=== PATIENT | female | born 1990 | race American Indian/Alaskan Native ===

== ENCOUNTER 2019-01-29 21:47 | Emergency (ER) | payer SELFPAY ==
[2019-01-29 21:54] VITALS: BP 157/91
[2019-01-29] MEDS ORDERED: ALBUTEROL 2.5 MG/3 ML NEBU IH ONE (23:05)
[2019-01-29] MEDS ORDERED: methylPREDNISolone Sod Succinate 125 MG/2 ML INJ IV ONE (23:05)
[2019-01-29] MEDS ORDERED: IPRATROPIUM 0.02% NEBU 2.5 ML IH ONE (23:05)
[2019-01-29 23:46] LABS: Hematocrit 43.1 % (30.3-42.9); Hemoglobin 14.5 gm/dl (10.1-14.3); Mean Corpuscular HGB Conc 34 % (30-34); Mean Corpuscular Volume 96 fl (79-97); Platelet Count 278 K/mm3 (140-440); Red Blood Count 4.49 M/mm3 (3.65-5.03); Red Cell Distribution Width 12.7 % (13.2-15.2)
--- NOTE | 2019-01-29 23:51 | Emergency Department Report ---
ED General Adult HPI - General Chief complaint: Dyspnea/Respdistress Stated complaint: COUGH/FLANK PAIN/SOB Time Seen by Provider: 01/29/19 23:06 Source: patient Mode of arrival: Ambulatory Limitations: No Limitations - History of Present Illness Initial comments: 28-year-old -[place] female patient with history of recurrent bronchitis presents with complaints of going cough for 4-5 weeks now worsening over the past few days and dysuria for the past 2 days. Patient states she is now getting intermittent headaches from coughing so much and having pain in her right lower rib area with coughing and deep inhalation. He denies any history of DVT/PE/MO/CVA, recent long travel via car ride or plane ride, leg pain or swelling, hormone therapy, recent surgeries. She states she is coughing up green mucus and states that she has had an intermittent tactile fever with chills and sweats. She denies any hemoptysis, dizziness, vision changes, or chest pain. She also denies his history of asthma as a child and states she has never been a smoker. She denies any vaginal discharge, dyspareunia, hematuria, or concern for STI's. -: Sudden, week(s) - Related Data Previous Rx's Medication Instructions Recorded Last Taken Type ALBUTEROL Inhaler (OR & NICU) 2 puff IH QID PRN #1 inhalation 08/26/17 Unknown Rx [ProAir HFA Inhaler] Dicyclomine [Bentyl] 20 mg PO QID #12 tablet 08/26/17 Unknown Rx Famotidine [Pepcid] 40 mg PO QHS #14 tablet 08/26/17 Unknown Rx Ibuprofen [Motrin] 600 mg PO Q8H PRN #20 tablet 08/26/17 Unknown Rx predniSONE [Deltasone] 10 mg PO QDAY #5 tab 08/26/17 Unknown Rx ALBUTEROL Inhaler (OR & NICU) 2 puff IH Q4H PRN #8.5 gram 01/30/19 Unknown Rx [ProAir HFA Inhaler] Benzonatate 200 mg PO TID 10 Days #30 capsule 01/30/19 Unknown Rx Doxycycline Monohydrate 100 mg PO BID 10 Days #20 capsule 01/30/19 Unknown Rx Prednisone [predniSONE 10 mg 10 mg PO .TAPER #1 tab.ds.pk 01/30/19 Unknown Rx (6-Day Pack, 21 Tabs)] Allergies Allergy/AdvReac Type Severity Reaction Status Date / Time coconut Allergy Itching Verified 08/26/17 12:17 ED Review of Systems ROS: Stated complaint: COUGH/FLANK PAIN/SOB Other details as noted in HPI Constitutional: chills, diaphoresis, fever Eyes: denies: eye pain, vision change ENT: denies: ear pain, throat pain Respiratory: cough, orthopnea, shortness of breath Cardiovascular: denies: chest pain, edema, syncope Gastrointestinal: denies: abdominal pain, nausea, vomiting Genitourinary: dysuria, frequency. denies: hematuria, discharge, abnormal menses, dyspareunia Musculoskeletal: denies: back pain Neurological: headache. denies: weakness, numbness, paresthesias, confusion, abnormal gait Psychiatric: denies: anxiety, depression Hematological/Lymphatic: denies: easy bleeding, easy bruising ED Past Medical Hx - Past Medical History Previous Medical History?: Yes Additional medical history: Bronchitis - Surgical History Past Surgical History?: No - Social History Smoking Status: Never Smoker Substance Use Type: None - Medications Home Medications: Home Medications Medication Instructions Recorded Confirmed Last Taken Type ALBUTEROL Inhaler (OR & NICU) 2 puff IH QID PRN #1 inhalation 08/26/17 Unknown Rx [ProAir HFA Inhaler] Dicyclomine [Bentyl] 20 mg PO QID #12 tablet 08/26/17 Unknown Rx Famotidine [Pepcid] 40 mg PO QHS #14 tablet 08/26/17 Unknown Rx Ibuprofen [Motrin] 600 mg PO Q8H PRN #20 tablet 08/26/17 Unknown Rx predniSONE [Deltasone] 10 mg PO QDAY #5 tab 08/26/17 Unknown Rx ALBUTEROL Inhaler (OR & NICU) 2 puff IH Q4H PRN #8.5 gram 01/30/19 Unknown Rx [ProAir HFA Inhaler] Benzonatate 200 mg PO TID 10 Days #30 capsule 01/30/19 Unknown Rx Doxycycline Monohydrate 100 mg PO BID 10 Days #20 capsule 01/30/19 Unknown Rx Prednisone [predniSONE 10 mg 10 mg PO .TAPER #1 tab.ds.pk 01/30/19 Unknown Rx (6-Day Pack, 21 Tabs)] ED Physical Exam - General Limitations: No Limitations General appearance: alert, in no apparent distress - Head Head exam: Present: atraumatic - Eye Eye exam: Present: normal appearance, PERRL. Absent: scleral icterus - ENT ENT exam: Present: mucous membranes moist - Neck Neck exam: Present: normal inspection. Absent: tenderness, full ROM, lymphaden opathy - Respiratory Respiratory exam: Present: wheezes, rales, rhonchi, chest wall tenderness. Absent: respiratory distress, accessory muscle use, decreased breath sounds - Cardiovascular Cardiovascular Exam: Present: regular rate, normal rhythm. Absent: systolic murmur, diastolic murmur, rubs, gallop - GI/Abdominal GI/Abdominal exam: Present: soft, normal bowel sounds - Extremities Exam Extremities exam: Absent: pedal edema, joint swelling, calf tenderness - Back Exam Back exam: Absent: CVA tenderness (R), CVA tenderness (L) - Neurological Exam Neurological exam: Present: alert, oriented X3 - Psychiatric Psychiatric exam: Present: normal affect, normal mood - Skin Skin exam: Present: warm, dry, intact, normal color. Absent: rash, cyanosis, diaphoretic ED Course Vital Signs 01/29/19 01/29/19 21:52 23:19 Temperature 99.4 F Pulse Rate 104 H Pulse Rate [ 112 H Bilateral Throughout] Respiratory 18 Rate Respiratory 20 Rate [Bilateral Throughout] Blood Pressure 157/91 O2 Sat by Pulse 95 Oximetry ED Medical Decision Making - Lab Data Result diagrams: 01/29/19 23:03 01/29/19 23:03 Lab Results 01/29/19 01/29/19 01/29/19 Range/Units 23:03 23:03 23:03 WBC 11.2 H (4.5-11.0) K/mm3 RBC 4.49 (3.65-5.03) M/mm3 Hgb 14.5 H (10.1-14.3) gm/dl Hct 43.1 H (30.3-42.9) % MCV 96 (79-97) fl MCH 32 (28-32) pg MCHC 34 (30-34) % RDW 12.7 L (13.2-15.2) % Plt Count 278 (140-440) K/mm3 Sodium 140 (137-145) mmol/L Potassium 4.1 (3.6-5.0) mmol/L Chloride 100.5 (98-107) mmol/L Carbon Dioxide 26 (22-30) mmol/L Anion Gap 18 mmol/L BUN 11 (7-17) mg/dL Creatinine 0.8 (0.7-1.2) mg/dL Estimated GFR > 60 ml/min BUN/Creatinine Ratio 14 % Glucose 96 (65-100) mg/dL Calcium 9.5 (8.4-10.2) mg/dL Total Bilirubin 0.30 (0.1-1.2) mg/dL AST 16 (5-40) units/L ALT 10 (7-56) units/L Alkaline Phosphatase 84 (35-129) units/L Total Protein 8.2 (6.3-8.2) g/dL Albumin 4.2 (3.9-5) g/dL Albumin/Globulin Ratio 1.1 % HCG, Qual Negative (Negative) Urine Color (Yellow) Urine Turbidity (Clear) Urine pH (5.0-7.0) Ur Specific [place] (1.003-1.030) Urine Protein (Negative) mg/dL Urine Glucose (UA) (Negative) mg/dL Urine Ketones (Negative) mg/dL Urine Blood (Negative) Urine Nitrite (Negative) Urine Bilirubin (Negative) Urine Urobilinogen (<2.0) mg/dL Ur Leukocyte Esterase (Negative) Urine WBC (Auto) (0.0-6.0) /HPF Urine RBC (Auto) (0.0-6.0) /HPF U Epithel Cells (Auto) (0-13.0) /HPF Calcium Oxalate Crystal Urine Mucus /HPF 01/29/19 Range/Units Unknown WBC (4.5-11.0) K/mm3 RBC (3.65-5.03) M/mm3 Hgb (10.1-14.3) gm/dl Hct (30.3-42.9) % MCV (79-97) fl MCH (28-32) pg MCHC (30-34) % RDW (13.2-15.2) % Plt Count (140-440) K/mm3 Sodium (137-145) mmol/L Potassium (3.6-5.0) mmol/L Chloride (98-107) mmol/L Carbon Dioxide (22-30) mmol/L Anion Gap mmol/L BUN (7-17) mg/dL Creatinine (0.7-1.2) mg/dL Estimated GFR ml/min BUN/Creatinine Ratio % Glucose (65-100) mg/dL Calcium (8.4-10.2) mg/dL Total Bilirubin (0.1-1.2) mg/dL AST (5-40) units/L ALT (7-56) units/L Alkaline Phosphatase (35-129) units/L Total Protein (6.3-8.2) g/dL Albumin (3.9-5) g/dL Albumin/Globulin Ratio % HCG, Qual (Negative) Urine Color Kelly (Yellow) Urine Turbidity Cloudy (Clear) Urine pH 5.0 (5.0-7.0) Ur Specific [place] 1.031 H (1.003-1.030) Urine Protein 30 mg/dl (Negative) mg/dL Urine Glucose (UA) Neg (Negative) mg/dL Urine Ketones 20 (Negative) mg/dL Urine Blood Sm (Negative) Urine Nitrite Neg (Negative) Urine Bilirubin Neg (Negative) Urine Urobilinogen 2.0 (<2.0) mg/dL Ur Leukocyte Esterase Mod (Negative) Urine WBC (Auto) 61.0 H (0.0-6.0) /HPF Urine RBC (Auto) 4.0 (0.0-6.0) /HPF U Epithel Cells (Auto) 23.0 H (0-13.0) /HPF Calcium Oxalate Crystal 1+ Urine Mucus 3+ /HPF - Radiology Data Radiology results: report reviewed CHEST 2 VIEWS, 01/30/2019 12:35 AM INDICATION: Cough COMPARISON: None FINDINGS: Support devices: None Heart: Heart size and pulmonary vascularity are within normal limits. Lungs/pleura: There is no focal airspace disease or significant pleural effusion. Additional findings: Bony structures appear grossly normal. IMPRESSION: 1. No evidence of acute cardiopulmonary process. - Medical Decision Making 28-year-old -[place] female here today with cough, shortness of breath and dysuria. She reports history of recurrent bronchitis. Patient is a nonsmoker without history of asthma per patient. States she has been having intermittent fever and chills and sweats. His productive of green sputum. WBCs = 11.4. Heart rate on exam at 88. Pulse ox is 95%. Chest x-ray is negative for acute findings. Reading has improved after 1 hour neb treatment with Solu- Medrol. UA shows UTI. We will discharge home with treatment for acute bacterial bronchitis. Patient to follow with primary care in 3-5 days. Discussed very strict return precautions in great detail with patient who states understanding. Critical care attestation.: If time is entered above; I have spent that time in minutes in the direct care of this critically ill patient, excluding procedure time. ED Disposition Clinical Impression: Acute bacterial bronchitis UTI (urinary tract infection) Qualifiers: Urinary tract infection type: acute cystitis Hematuria presence: without hematuria Qualified Code(s): N30.00 - Acute cystitis without hematuria Disposition: TO HOME OR SELFCARE Is pt being admited?: No Condition: Stable Instructions: Acute Bronchitis (ED), Urinary Tract Infection in Women (ED) Prescriptions: Benzonatate 200 mg PO TID 10 Days #30 capsule Doxycycline Monohydrate 100 mg PO BID 10 Days #20 capsule Prednisone [predniSONE 10 mg (6-Day Pack, 21 Tabs)] 10 mg PO .TAPER #1 tab.ds.pk ALBUTEROL Inhaler (OR & NICU) [ProAir HFA Inhaler] 2 puff IH Q4H PRN #8.5 gram PRN Reason: Shortness Of Breath Referrals: KWABENA EVANS MD [Referring] - 3-5 Days
[2019-01-29 23:59] LABS: Alanine Aminotransferase 10 units/L (7-56); Albumin 4.2 g/dL (3.9-5); BUN/Creatinine Ratio 14; Blood Urea Nitrogen 11 mg/dL (7-17); Calcium 9.5 mg/dL (8.4-10.2); Hemolysis Index 5
--- NOTE | 2019-01-30 01:18 | XRay Report ---
CHEST 2 VIEWS, 01/30/2019 12:35 AM INDICATION: Cough COMPARISON: None FINDINGS: Support devices: None Heart: Heart size and pulmonary vascularity are within normal limits. Lungs/pleura: There is no focal airspace disease or significant pleural effusion. Additional findings: Bony structures appear grossly normal. IMPRESSION: 1. No evidence of acute cardiopulmonary process. Signer Name: Danisha Paz MD Signed: 01/30/2019 1:13 AM Workstation Name: [email or web address]
[2019-01-30 01:30] LABS: Bilirubin,Urine NEG (Negative); Blood,Urine SM (Negative); Calcium Oxalate Crystals,Urine 1+; Color,Urine Amber (Yellow); Mucus,Urine 3+ /HPF
== END 2019-01-30 02:30 | disposition home or self-care (01) ==
LOC: ED 21:47
DX: J20.9 Acute bronchitis, unspecified (principal); N39.0 Urinary tract infection, site not specified; Z79.899 Other long term (current) drug therapy; Z91.018 Allergy to other foods
CPT/HCPCS: 36415; 71046; 80053; 81001; 84703; 85027; 87086; 94644; 96374; 99284; J2930

== ENCOUNTER 2020-10-28 01:04 | Emergency (ER) | payer SELFPAY | END 2020-10-29 01:01 | disposition left against medical advice (07) | LOC: ED 01:04 | DX: R05 Cough (principal); Z53.21 Procedure and treatment not carried out due to patient leaving prior to being seen by health care provider ==

== ENCOUNTER 2021-01-09 09:39 | Outpatient (CLI) | payer OTHER ==
--- NOTE | 2021-01-09 13:25 | Ultrasound Report ---
ULTRASOUND PELVIS INDICATION / CLINICAL INFORMATION: PROLONG VAG BLEEDING X1 MONTH. TECHNIQUE: Transabdominal and Transvaginal. Duplex Color Doppler used: Yes. COMPARISON: None available FINDINGS: UTERUS: - Appearance: No significant abnormality. - Size (cm): 8.3 x 4.6 x 3.5 cm. - Endometrial Complex (if present): No significant abnormality.. Thickness in cm (if measured) = 0.3 cm. - Mass or cyst: None. - Additional findings: None. RIGHT ADNEXA: The right ovary measures 3.8 x 2.6 x 1.6 cm. Follicular changes noted. Normal color Dop pler blood flow. LEFT ADNEXA: The left ovary measures 3.5 x 2.7 x 1.7 cm. Follicular changes noted. Normal color Doppl er blood flow. URINARY BLADDER: No significant abnormality. FREE FLUID: Small amount of free fluid within the posterior cul-de-sac. ADDITIONAL FINDINGS: None. IMPRESSION: 1. No significant sonographic abnormality. Scribed by: Marifer Robledo RDMS, RVT Scribed: 01/09/2021 11:52 AM I have reviewed the images, agree with this report, and edited this report as needed. Signer Name: Russell Llanes MD Signed: 01/09/2021 1:20 PM Workstation Name: [email or web address]
== END 2021-01-09 09:40 | disposition home or self-care (01) ==
LOC: US 09:39
PROVIDERS: ATTEND Obstetrics & Gynecology
DX: N92.0 Excessive and frequent menstruation with regular cycle (principal)
CPT/HCPCS: 76830; 76856